=== PATIENT | male | born 1965 | race Two or more races ===

== ENCOUNTER 2024-04-07 16:08 | Outpatient (AMB) | payer MEDICAID, SELFPAY ==
--- NOTE | 2024-04-07 16:09 | PD.ORTHTELE ---
Med/Allergies Allergies & Medications Allergies No Known Allergies Allergy (Verified 04/07/24 16:09) Medication Reconciliation dutasteride 0.5 mg capsule 0.5 mg PO QDAY 05/12/20 [History Confirmed 04/07/24] esomeprazole magnesium 40 mg capsule,delayed release (Nexium) 40 mg PO QDAY 05/12/20 [History Confirmed 04/07/24] hydrochlorothiazide 25 mg tablet 25 mg PO QDAY 05/12/20 [History Confirmed 04/07/24] tamsulosin 0.4 mg capsule 0.4 mg PO QHS 05/12/20 [History Confirmed 04/07/24] lisinopril 20 mg tablet 20 mg PO QDAY 03/24/24 [History Confirmed 04/07/24] meloxicam 7.5 mg tablet 7.5 mg PO QDAY #45 tabs 03/24/24 [Rx Confirmed 04/07/24] Subjective Visit Visit for: follow up visit and x-rays (RESULTS) Immunization / Flu Flu Vaccine in the Last 12 Months: Yes Flu Vaccine Exclusion Criteria: Already Received History of Present Illness Chief complaint: XRAY RESULTS LENY Funes is a pleasant 58-year-old male with bilateral knee pain of equal severity. This been ongoing for several months. The left is greater than the right. He has had 1 injection in both knees with minimal relief. He has not tried any anti-inflammatories Pain Pain level (0-10): 8 Pain duration: ALL DAY Pain location: inside (medial) Pain quality: aching Pain timing: night and increases with activity Associated signs & symptoms: weakness Ambulatory data Ambulatory device: none Treatments Number of previous injections: 1 Improvement with previous injections: No Improvement with PT: No Improvement with NSAIDS: no Review of Systems Review of Systems: All systems negative unless otherwise noted in HPI. Assessment and Plan Problem List (1) Degenerative arthritis of knee, bilateral: Status: Acute Plan: Patient is a 58-year-old male with bilateral knee pain and bilateral knee arthritis. We discussed nonoperative and operative treatment. We will start with conservative treatment. We will get authorization for injections at the next visit. We discussed that he has significant arthritis. We will have him start physical therapy. Should he fail we can discuss total knee replacement Office Procedures GNS Level of Care Nursing/Assessment Patient Status: Established Patient Nursing Assessment/Reassesment: Medication Reconciliation, Update PMH in EMR and Vital Signs Coordination of Care: Complex Care and Chronic Disease 1-5, Education Complex Pt/Fam, Consent,records obtained, informed consent, 1 Ins Authorization, Lab and Imaging orders, Results/Orders obtained and Staff clarify orders Special Needs: Language special needs Established Patient Charge Established Patient Point Assignment: 125 Telehealth Telemed Phone/Video with patient at home & Dr,PA,LEAD FRONT END DEVELOPER: Yes
== END 2024-04-07 16:10 | disposition home or self-care (01) ==
LOC: HODSRG 16:08
PROVIDERS: Supervising Provider Orthopaedic Surgery Adult Reconstructive Orthopaedic Surgery; Visit Provider Orthopaedic Surgery Adult Reconstructive Orthopaedic Surgery
DX: M17.0 Bilateral primary osteoarthritis of knee (principal); M25.562 Pain in left knee; M25.561 Pain in right knee
CPT/HCPCS: 99212; G0463

== ENCOUNTER 2024-05-01 13:38 | Outpatient (AMB) | payer MEDICAID, SELFPAY ==
[2024-05-01 14:11] VITALS: BP 130/83; PULSE 76; RESP 19; TEMP 36.7; O2SAT 95; BMI 31.2
--- NOTE | 2024-05-01 14:11 | ORTHONT_ITS ---
Vital signs 05/01/24 14:11 Height 1.73 m Height Method Stated Weight 93.582 kg Weight Measurement Method Standing Scale BMI 31.2 BP 130/83 Blood Pressure Source Automatic Cuff Blood Pressure Location Left Upper Arm Position Sitting Respiration 19 Pulse 76 Pulse Source Monitor Temp 98.1 F Temp Source Temporal Artery Scan Pulse Oximetry (%) 95 Oxygen Delivery Method Room Air Med/Allergies Allergies & Medications Allergies No Known Allergies Allergy (Verified 05/01/24 14:15) Medication Reconciliation dutasteride 0.5 mg capsule 0.5 mg PO QDAY 05/12/20 [History Confirmed 05/01/24] esomeprazole magnesium 40 mg capsule,delayed release (Nexium) 40 mg PO QDAY 05/12/20 [History Confirmed 05/01/24] hydrochlorothiazide 25 mg tablet 25 mg PO QDAY 05/12/20 [History Confirmed 05/01/24] tamsulosin 0.4 mg capsule 0.4 mg PO QHS 05/12/20 [History Confirmed 05/01/24] lisinopril 20 mg tablet 20 mg PO QDAY 03/24/24 [History Confirmed 05/01/24] meloxicam 7.5 mg tablet 7.5 mg PO QDAY #45 tabs 03/24/24 [Rx Confirmed 05/01/24] Subjective Visit Visit for: follow up visit, knee (BILATERAL) and injections Immunization / Flu Flu Vaccine in the Last 12 Months: No Flu Vaccine Exclusion Criteria: No Exclusion Criteria History of Present Illness Chief complaint: F/U BILATERAL KNEE PAIN/REQ INJECTION Marin is a pleasant 58-year-old male with bilateral knee pain of equal severity. This been ongoing for several months. The left is greater than the right. He has had 1 injection in both knees with minimal relief. He has not tried any anti-inflammatories Pain Pain level (0-10): 6 Pain duration: CONSTANT Pain location: inside (medial) and outside (lateral) Pain quality: sharp, dull and aching Pain timing: night and increases with activity Associated signs & symptoms: numbness and weakness Ambulatory data Ambulatory device: none Treatments Number of previous injections: 1 Improvement with previous injections: No Improvement with PT: No Improvement with NSAIDS: no Review of Systems Review of Systems: All systems negative unless otherwise noted in HPI. Exam Exam Patient is in no acute distress and is cooperative with the examination today. Breathing is nonlabored. In no respiratory distress. Bilateral extremities were evaluated and demonstrates sensation intact to light touch. Palpable pedal pulses are present. No significant edema is present. Bilateral hips were examined. The patient has no pain with log roll of the hips. Internal rotation to 30 degrees and external rotation to 30 degrees is painless. Negative FADIR. The left knee was examined. The left knee is in [varus] alignment. Range of motion from [0-115] degrees. Knee is stable to varus and valgus as well as AP translation with <5mm. Patient has a [negative] McMurrays. There is [no] pain with patellofemoral compression and [no] crepitus noted. The knee is [tender] to palpation [medially]. The right knee was also examined. The right knee is in [varus] alignment. Range of motion from [0-120] degrees. Knee is stable to varus and valgus as well as AP translation with <5mm. Patient has a [negative] McMurrays. There is [no] pain with patellofemoral compression and [no] crepitus noted. The knee is [tender] to palpation [medially]. [facility] from [facility] were reviewed by me today. These are nonweightbearing films. This demonstrates mild arthritis worse on the left knee medially. He would benefit from weightbearing x-rays Assessment and Plan Problem List (1) Degenerative arthritis of knee, bilateral: Status: Acute Plan: Patient is a 58-year-old male with bilateral knee pain and bilateral knee arthritis. We discussed nonoperative and operative treatment. We will start with conservative treatment. We will get authorization for injections at the next visit. We discussed that he has significant arthritis. We will have him start physical therapy. Should he fail we can discuss total knee replacement Recommend knee cortisone injections as patient would like to proceed with conservative treatment at this time. The risks and benefits of the procedure were reviewed with the patient and patient gave verbal consent to continue with the procedure. Procedure: performed by Dr. Solis Using sterile technique the Bilateral knees were thoroughly prepped with alcohol, and approximately 1 cc of Kenalog 40 mg/mL and 4 cc of 1% lidocaine was injected into each knee without resistance into the medial tibial femoral joint space. The patient tolerated the procedure. Office Procedures GNS Level of Care Nursing/Assessment Patient Status: Established Patient Nursing Assessment/Reassesment: Medication Reconciliation, Update PMH in EMR and Vital Signs Coordination of Care: Complex Care and Chronic Disease 1-5, Education Complex Pt/Fam, Consent,records obtained, informed consent, 1 Ins Authorization, Results/Orders obtained and Staff clarify orders Established Patient Charge Established Patient Point Assignment: 110 Established Patient Point Charge: EP Level 3 (80-115) Surgical Proc/IM SQ injection Major Surgical Procedure: Yes (BILATERAL KNEE INJECTION) Medication Given Medication Given Medication Given: Yes Documented Dose Given: 8 Route: Infiitration Medication Given Medication Given Medication Given: Yes Documented Dose Given: 2 Route: Infiitration Office Meds Xylocaine 10 mg/mL (1 %) injection solution Performing Provider: Jethro Solis MD Performing Location: [facility] Administered by: Jethro Solis MD on 05/01/24 14:29 Dose Route Admin Location Dispensed Lot Number Expiration Date [facility] Publications Production Supervisor 40 mL Infiltration 40 mL [id number] 01/06/27 69098-646-62 [facility] triamcinolone acetonide 40 mg/mL suspension for injection Performing Provider: Jethro Solis MD Performing Location: [facility] Administered by: Jethro Solis MD on 05/01/24 14:29 Dose Route Admin Location Dispensed Lot Number Expiration Date [facility] Publications Production Supervisor 80 mg Infiltration 2 mL [id number] 11/06/25 2525-2631-90 [employer] Past Medical History Past Medical History Have you ever been diagnosed with any of the following: Cardiology Problems Congestive Heart Failure: No Hypertension: Yes Respiratory Problems Chronic Obstructive Pulmonary Disease (COPD): No Smoking: No Smoking Exposure: No Genital/Urinary Problems Renal Disease: No Endocrine Problems Diabetes Mellitus Type 1: No Diabetes Mellitus Type 2: No
== END 2024-05-01 14:28 | disposition home or self-care (01) ==
LOC: HODSRG 13:38
PROVIDERS: Supervising Provider Orthopaedic Surgery Adult Reconstructive Orthopaedic Surgery; Visit Provider Orthopaedic Surgery Adult Reconstructive Orthopaedic Surgery
DX: M17.0 Bilateral primary osteoarthritis of knee (principal); M25.562 Pain in left knee; M25.561 Pain in right knee; I10 Essential (primary) hypertension
CPT/HCPCS: 20610; 99213; J3301; J3490; G0463

== ENCOUNTER 2024-09-01 14:37 | Outpatient (AMB) | payer MEDICAID, SELFPAY ==
[2024-09-01 15:06] VITALS: BP 144/80; PULSE 80; RESP 18; TEMP 36.5; O2SAT 98; BMI 31.5
--- NOTE | 2024-09-01 15:06 | PD.ORTHCLVIS ---
Vital signs 09/01/24 15:06 Height 1.73 m Height Method Stated Weight 94.347 kg Weight Measurement Method Standing Scale BMI 31.5 BP 144/80 H Blood Pressure Source Automatic Cuff Blood Pressure Location Left Upper Arm Position Sitting Respiration 18 Pulse 80 Pulse Source Monitor Temp 97.7 F Temp Source Temporal Artery Scan Pulse Oximetry (%) 98 Oxygen Delivery Method Room Air Med/Allergies Allergies & Medications Allergies No Known Allergies Allergy (Verified 09/01/24 15:07) Medication Reconciliation dutasteride 0.5 mg capsule 0.5 mg PO QDAY 05/12/20 [History Confirmed 09/01/24] esomeprazole magnesium 40 mg capsule,delayed release (Nexium) 40 mg PO QDAY 05/12/20 [History Confirmed 09/01/24] hydrochlorothiazide 25 mg tablet 25 mg PO QDAY 05/12/20 [History Confirmed 09/01/24] tamsulosin 0.4 mg capsule 0.4 mg PO QHS 05/12/20 [History Confirmed 09/01/24] lisinopril 20 mg tablet 20 mg PO QDAY 03/24/24 [History Confirmed 09/01/24] meloxicam 7.5 mg tablet 7.5 mg PO QDAY #45 tabs 03/24/24 [Rx Confirmed 09/01/24] Exam Exam Patient is in no acute distress and is cooperative with the examination today. Breathing is nonlabored. In no respiratory distress. Bilateral extremities were evaluated and demonstrates sensation intact to light touch. Palpable pedal pulses are present. No significant edema is present. Bilateral hips were examined. The patient has no pain with log roll of the hips. Internal rotation to 30 degrees and external rotation to 30 degrees is painless. Negative FADIR. The left knee was examined. The left knee is in [varus] alignment. Range of motion from [0-115] degrees. Knee is stable to varus and valgus as well as AP translation with <5mm. Patient has a [negative] McMurrays. There is [no] pain with patellofemoral compression and [no] crepitus noted. The knee is [tender] to palpation [medially]. The right knee was also examined. The right knee is in [varus] alignment. Range of motion from [0-120] degrees. Knee is stable to varus and valgus as well as AP translation with <5mm. Patient has a [negative] McMurrays. There is [no] pain with patellofemoral compression and [no] crepitus noted. The knee is [tender] to palpation [medially]. Weightbearing x-rays demonstrate mild arthritis of both knees Assessment and Plan Problem List (1) Degenerative arthritis of knee, bilateral: Status: Acute Plan: Patient is a 58-year-old male with bilateral knee pain and bilateral knee arthritis. We discussed nonoperative and operative treatment. We will continue with conservative treatment Recommend knee cortisone injections as patient would like to proceed with conservative treatment at this time. The risks and benefits of the procedure were reviewed with the patient and patient gave verbal consent to continue with the procedure. Procedure: performed by Dr. Solis Using sterile technique the Bilateral knees were thoroughly prepped with alcohol, and approximately 1 cc of Kenalog 40 mg/mL and 4 cc of 1% lidocaine was injected into each knee without resistance into the medial tibial femoral joint space. The patient tolerated the procedure. Office Procedures GNS Level of Care Nursing/Assessment Patient Status: Established Patient Nursing Assessment/Reassesment: Medication Reconciliation, Update PMH in EMR and Vital Signs Coordination of Care: Complex Care and Chronic Disease 1-5, Education Complex Pt/Fam, Consent,records obtained, informed consent, Results/Orders obtained and Staff clarify orders Special Needs: Language special needs Established Patient Charge Established Patient Point Assignment: 95 Established Patient Point Charge: EP Level 3 (80-115) Surgical Proc/IM SQ injection Major Surgical Procedure: Yes (BILATERAL KNEE INJECTION) Medication Given Medication Given Medication Given: Yes Documented Dose Given: 8 Route: Infiitration Medication Given Medication Given Medication Given: Yes Documented Dose Given: 2 Route: Infiitration Office Meds Xylocaine 10 mg/mL (1 %) injection solution Performing Provider: Jethro Solis MD Performing Location: [facility] Administered by: Jethro Solis MD on 09/01/24 15:28 Dose Route Admin Location Dispensed Lot Number Expiration Date [employer] Counter Hand 40 mL Infiltration 40 mL [id number] 10/08/27 91813-578-99 [facility] triamcinolone acetonide 40 mg/mL suspension for injection Performing Provider: Jethro Solis MD Performing Location: [facility] Administered by: Jethro Solis MD on 09/01/24 15:28 Dose Route Admin Location Dispensed Lot Number Expiration Date [facility] Counter Hand 80 mg intra-articular 2 mL [id number] 04/08/26 6100-9996-67 TEV[employer] PARENTERAL [place] Intake Visit Data Collection New Patient or Established: Established Patient (seen at [facility] within 3 years) Reason for Visit:: F/U KNEE BILATERAL Seen by Clinical Staff ONLY (RN/MA): No Division Operations Manager Required: Yes PCP or OBGYN visit in last 3 months: Yes Hx Now: No Do You Feel Safe at Home: Yes Authorities Contacted: N/A Questionairres Past Medical History Past Medical History Have you ever been diagnosed with any of the following: Cardiology Problems Congestive Heart Failure: No Hypertension: Yes Respiratory Problems Chronic Obstructive Pulmonary Disease (COPD): No Smoking: No Smoking Exposure: No Genital/Urinary Problems Renal Disease: No Endocrine Problems Diabetes Mellitus Type 1: No Diabetes Mellitus Type 2: No Subjective Visit Visit for: follow up visit and knee Immunization / Flu Flu Vaccine in the Last 12 Months: No Flu Vaccine Exclusion Criteria: No Exclusion Criteria History of Present Illness Marin is a pleasant 58-year-old male with bilateral knee pain of equal severity. This been ongoing for several months. The left is greater than the right. He has had injections of both knees and reports dramatic relief. He would like new injections today Pain Pain level (0-10): 8 Pain duration: AT NIGHT Pain location: anterior Pain quality: dull and aching Pain timing: night and increases with activity Associated signs & symptoms: none Ambulatory data Ambulatory device: none Treatments Number of previous injections: 1 Improvement with previous injections: No Improvement with PT: No Improvement with NSAIDS: no Review of Systems Review of Systems: All systems negative unless otherwise noted in HPI.
== END 2024-09-01 15:20 | disposition home or self-care (01) ==
LOC: HODSRG 14:37
PROVIDERS: Supervising Provider Orthopaedic Surgery Adult Reconstructive Orthopaedic Surgery; Visit Provider Orthopaedic Surgery Adult Reconstructive Orthopaedic Surgery
DX: M17.0 Bilateral primary osteoarthritis of knee (principal); M25.562 Pain in left knee; M25.561 Pain in right knee; I10 Essential (primary) hypertension
CPT/HCPCS: 20610; 99213; J3301; J3490; G0463

== ENCOUNTER 2025-02-09 14:43 | Outpatient (AMB) | payer MEDICAID, SELFPAY ==
--- NOTE | 2025-02-09 14:47 | PD.ORTHCLVIS ---
Vital signs 02/09/25 14:53 Height 1.73 m Height Method Measured Weight 95.396 kg Weight Measurement Method Standing Scale BMI 31.8 BP 136/90 H Blood Pressure Source Automatic Cuff Blood Pressure Location Left Upper Arm Position Sitting Respiration 18 Pulse 78 Pulse Source Monitor Temp 98.2 F Temp Source Temporal Artery Scan Pulse Oximetry (%) 94 L Oxygen Delivery Method Room Air Med/Allergies Allergies & Medications Allergies No Known Allergies Allergy (Verified 02/09/25 14:53) Medication Reconciliation dutasteride 0.5 mg capsule 0.5 mg PO QDAY 05/12/20 [History Confirmed 02/09/25] esomeprazole magnesium 40 mg capsule,delayed release (Nexium) 40 mg PO QDAY 05/12/20 [History Confirmed 02/09/25] hydrochlorothiazide 25 mg tablet 25 mg PO QDAY 05/12/20 [History Confirmed 02/09/25] tamsulosin 0.4 mg capsule 0.4 mg PO QHS 05/12/20 [History Confirmed 02/09/25] lisinopril 20 mg tablet 20 mg PO QDAY 03/24/24 [History Confirmed 02/09/25] meloxicam 7.5 mg tablet 7.5 mg PO QDAY #45 tabs 03/24/24 [Rx Confirmed 02/09/25] Exam Exam Patient is in no acute distress and is cooperative with the examination today. Breathing is nonlabored. In no respiratory distress. Bilateral extremities were evaluated and demonstrates sensation intact to light touch. Palpable pedal pulses are present. No significant edema is present. Bilateral hips were examined. The patient has no pain with log roll of the hips. Internal rotation to 30 degrees and external rotation to 30 degrees is painless. Negative FADIR. The left knee was examined. The left knee is in [varus] alignment. Range of motion from [0-115] degrees. Knee is stable to varus and valgus as well as AP translation with <5mm. Patient has a [negative] McMurrays. There is [no] pain with patellofemoral compression and [no] crepitus noted. The knee is [tender] to palpation [medially]. The right knee was also examined. The right knee is in [varus] alignment. Range of motion from [0-120] degrees. Knee is stable to varus and valgus as well as AP translation with <5mm. Patient has a [negative] McMurrays. There is [no] pain with patellofemoral compression and [no] crepitus noted. The knee is [tender] to palpation [medially]. Weightbearing x-rays demonstrate mild arthritis of both knees Assessment and Plan Problem List (1) Degenerative arthritis of knee, bilateral: Status: Acute Plan: Patient is a 58-year-old male with bilateral knee pain and bilateral knee arthritis. We discussed nonoperative and operative treatment. We will continue with conservative treatment Recommend knee cortisone injection as patient would like to proceed with conservative treatment at this time. The risks and benefits of the procedure were reviewed with the patient and patient gave verbal consent to continue with the procedure. Procedure: performed by Dr. Solis Using sterile technique the left knee was thoroughly prepped with alcohol, and approximately 1 cc of Depo-Medrol 80mg/mL and 4 cc of 0.2% ropivacaine was injected without resistance into the medial tibial femoral joint space. The patient tolerated the procedure. Recommend knee cortisone injection as patient would like to proceed with conservative treatment at this time. The risks and benefits of the procedure were reviewed with the patient and patient gave verbal consent to continue with the procedure. Procedure: performed by Dr. Solis Using sterile technique the Right knee was thoroughly prepped with alcohol, and approximately 1 cc of Depo-Medrol 80mg/mL and 4 cc of 0.2% ropivacaine was injected without resistance into the medial tibial femoral joint space. The patient tolerated the procedure. Office Procedures GNS Level of Care Nursing/Assessment Patient Status: Established Patient Nursing Assessment/Reassesment: Medication Reconciliation, Update PMH in EMR and Vital Signs Coordination of Care: Complex Care and Chronic Disease 1-5, Education Complex Pt/Fam, Consent,records obtained, informed consent, Results/Orders obtained and Staff clarify orders Special Needs: Language special needs Established Patient Charge Established Patient Point Assignment: 95 Established Patient Point Charge: EP Level 3 (80-115) Surgical Proc/IM SQ injection Major Surgical Procedure: Yes (BILATERAL KNEE INJECTION) Medication Given Medication Given Medication Given: Yes Documented Dose Given: 1 Route: Infiitration Medication Given Medication Given Medication Given: Yes Documented Dose Given: 1 Route: Infiitration Medication Given Medication Given Medication Given: Yes Documented Dose Given: 4 Route: Infiitration Medication Given Medication Given Medication Given: Yes Documented Dose Given: 4 Route: Infiitration Office Meds methylprednisolone acetate 80 mg/mL suspension for injection Performing Provider: Jethro Solis MD Performing Location: [facility] Administered by: Jethro Solis MD on 02/09/25 15:20 Dose Route Admin Location Dispensed Lot Number Expiration Date [facility] Building Code Inspector 80 mg intra-articular 1 mL [id number] 07/09/26 4044-6030-67 [facility] methylprednisolone acetate 80 mg/mL suspension for injection Performing Provider: Jethro Solis MD Performing Location: [facility] Administered by: Jethro Solis MD on 02/09/25 15:20 Dose Route Admin Location Dispensed Lot Number Expiration Date [facility] Building Code Inspector 80 mg intra-articular 1 mL [id number] 07/09/26 9521-4117-05 [facility] ropivacaine (PF) 2 mg/mL (0.2 %) injection solution Performing Provider: Jethro Solis MD Performing Location: [facility] Administered by: Jethro Solis MD on 02/09/25 15:20 Dose Route Admin Location Dispensed Lot Number Expiration Date [place] Building Code Inspector 20 mL Infiltration 20 mL [id number] 07/09/27 51660-687-58 [facility] ropivacaine (PF) 2 mg/mL (0.2 %) injection solution Performing Provider: Jethro Solis MD Performing Location: [facility] Administered by: Jethro Solis MD on 02/09/25 15:25 Dose Route Admin Location Dispensed Lot Number Expiration Date [facility] Building Code Inspector 20 mL Infiltration 20 mL [id number] 07/09/27 67992-932-12 [facility] [place] Intake Visit Data Collection New Patient or Established: Established Patient (seen at [facility] within 3 years) Reason for Visit:: F/U KNEE BILATERAL/INJECTIONS Seen by Clinical Staff ONLY (RN/MA): No Medical Technologist Chemistry Required: Yes PCP or OBGYN visit in last 3 months: Yes Hx Now: No Do You Feel Safe at Home: Yes Authorities Contacted: N/A Questionairres Past Medical History Past Medical History Have you ever been diagnosed with any of the following: Cardiology Problems Congestive Heart Failure: No Hypertension: Yes Respiratory Problems Chronic Obstructive Pulmonary Disease (COPD): No Smoking: No Smoking Exposure: No Genital/Urinary Problems Renal Disease: No Endocrine Problems Diabetes Mellitus Type 1: No Diabetes Mellitus Type 2: No Subjective Visit Visit for: follow up visit and knee Immunization / Flu Flu Vaccine in the Last 12 Months: No Flu Vaccine Exclusion Criteria: No Exclusion Criteria History of Present Illness Chief complaint: BILATERAL KNEE PAIN/POSSIBLE INJECTION Marin is a pleasant 58-year-old male with bilateral knee pain of equal severity. This been ongoing for several months. The left is greater than the right. He has had injections of both knees and reports dramatic relief. He would like new injections today Personal History Red flag PMH: none BMI Counceling provided: Yes Pain Pain level (0-10): 8 Pain duration: AT NIGHT Pain location: anterior Pain quality: dull and aching Pain timing: night and increases with activity Associated signs & symptoms: none Ambulatory data Ambulatory device: none Treatments Number of previous injections: 2 Improvement with previous injections: Yes Improvement with PT: No Improvement with NSAIDS: no Review of Systems Review of Systems: All systems negative unless otherwise noted in HPI.
[2025-02-09 14:53] VITALS: BP 136/90; PULSE 78; RESP 18; TEMP 36.8; O2SAT 94; BMI 31.8
--- NOTE | 2025-02-09 15:12 | XR_ITS ---
Examination: Bilateral knees 2 views Right lateral knee left lateral knee 2 views Bilateral axial knees single view TECHNIQUE: Bilateral AP knees standing single view, bilateral PA knees standing single view flexion Standing right lateral knee left lateral knee 2 views Bilateral axial knees single view total 5 views Date and time: February 09, 2025 1523 hours INDICATIONS: Bilateral knee pain one year. FINDINGS: Mild osteopenia Moderate narrowing medial joint space right knee Moderate osteoarthritis right patellofemoral joint No fracture Moderate to advanced medial joint space left knee Moderate to advanced osteoarthritis lateral patellofemoral joints left knee Subcentimeter multiple ossified joint bodies posterior left joint space IMPRESSION: Moderate to advanced osteoarthritis medial joint space left knee Moderate to advanced osteoarthritis lateral patellofemoral joints left knee
== END 2025-02-09 15:18 | disposition home or self-care (01) ==
LOC: HODSRG 14:43
PROVIDERS: Supervising Provider Orthopaedic Surgery Adult Reconstructive Orthopaedic Surgery; Visit Provider Orthopaedic Surgery Adult Reconstructive Orthopaedic Surgery
DX: M17.0 Bilateral primary osteoarthritis of knee (principal); I10 Essential (primary) hypertension
CPT/HCPCS: 20610; 73564; 99213; J1010; J2795; G0463